=== PATIENT | male | born 1935 | race Caucasian/White ===

== ENCOUNTER → 2017-08-26 | Outpatient (CLI) | payer MEDICARE ==
[~2017-08-26] MED LIST: ACET325 PO; ASPI325 PO; ASPI325EC PO; ASPI81CH PO; Aspirin325 MG PO; Cipro500 MG PO; FURO20 PO; GLIM2 PO; GLIM4 PO; HYDACE7.5 PO; ISOMON20 PO; LEVFLO500 PO; LISI5 PO; LORA.5 PO; MELO7.5 PO; METO25ER PO; METO50 PO; NITR.4SL SL; Norco 10-325 T1 EACH; OMEP20ER PO; OXYACE5T PO; OXYC5 PO; POTCHL20ER PO; SENN187 PO; SIMV10 PO; TAMS.4ER PO; Zofran Odt4 MG SL
== END | disposition home or self-care (01) ==
LOC: PLD 14:07
DX: C18.2 Malignant neoplasm of ascending colon (principal)
CPT/HCPCS: 88108

== ENCOUNTER 2017-10-15 11:45 | Day surgery (SDC) | payer MEDICARE ==
[~2017-10-15] VITALS: Ht 175.3 cm; Wt 110.2 kg
[~2017-10-15 11:45] MED LIST changes: -Norco 10-325 T1 EACH
[2017-10-15] MEDS ORDERED: Norco 10-325 T1 EACH (12:34)
== END 2017-10-15 13:48 | disposition home or self-care (01) ==
LOC: ORSCSDS 11:45
PROVIDERS: Surgery
PROC: 0DBL8ZX Excision of Transverse Colon, Via Natural or Artificial Opening Endoscopic, Diagnostic (ICD-10-PCS; principal; 2017-10-15 13:00)
DX: Z12.11 Encounter for screening for malignant neoplasm of colon (principal); C18.4 Malignant neoplasm of transverse colon; Z85.038 Personal history of other malignant neoplasm of large intestine; E11.9 Type 2 diabetes mellitus without complications; I10 Essential (primary) hypertension; E78.5 Hyperlipidemia, unspecified; I25.810 Atherosclerosis of coronary artery bypass graft(s) without angina pectoris; I73.9 Peripheral vascular disease, unspecified; E66.01 Morbid (severe) obesity due to excess calories; Z68.35 Body mass index [BMI] 35.0-35.9, adult; Z87.891 Personal history of nicotine dependence; Z79.82 Long term (current) use of aspirin; Z79.899 Other long term (current) drug therapy
CPT/HCPCS: 82947; 88305; J7120

== ENCOUNTER 2018-02-04 09:21 | Day surgery (SDC) | payer MEDICARE ==
[~2018-02-04] VITALS: Ht 172.7 cm; Wt 113.6 kg
[~2018-02-04 09:21] MED LIST changes: +Norco 10-325 T1 EACH
== END 2018-02-04 11:30 | disposition home or self-care (01) ==
LOC: ORSCSDS 09:21
PROVIDERS: Surgery
PROC: 0DJD8ZZ Inspection of Lower Intestinal Tract, Via Natural or Artificial Opening Endoscopic (ICD-10-PCS; principal; 2018-02-04 10:45)
DX: C18.4 Malignant neoplasm of transverse colon (principal); E11.9 Type 2 diabetes mellitus without complications; I73.9 Peripheral vascular disease, unspecified; I10 Essential (primary) hypertension; E78.5 Hyperlipidemia, unspecified; Z87.891 Personal history of nicotine dependence; Z86.010 Personal history of colon polyps; E66.9 Obesity, unspecified; Z68.38 Body mass index [BMI] 38.0-38.9, adult; Z79.82 Long term (current) use of aspirin; Z79.899 Other long term (current) drug therapy
CPT/HCPCS: 82947; J7120